=== PATIENT | male | born 1990 | race Caucasian/White ===

== ENCOUNTER 2016-09-09 02:44 | Emergency (ER) | payer SELFPAY ==
--- NOTE | ~2016-09-09 | CT2 ---
[facility] A Service of [facility] RADIOLOGY TEXT RESULTS PATIENT: JEFF MENDEZ LOCATION: SED : [birth year] UNIT #: [id number] AGE: [address]: David Rodriguez MD SEX: M ORDER DR: [id number] [place] [id number] E MR#: [id number] Acc #: [id number] NAME: JEFF MENDEZ : 1990 SEX: M STUDY DATE/TIME: 09/09/2016 4:31 UNIT: SED ROOM: STUDY DESCRIPTION: CT Abd and Pelv W Cont Attending Physician: David Rodriguez M.D. Ordering Physician: David Rodriguez M.D. MEDICAL IMAGING REPORT This report is preliminary unless electronic signature is present. EXAM CT abdomen and pelvis with contrast INDICATION Right lower quadrant abdominal pain for the past 2 days. PROCEDURE Contrast-enhanced CT abdomen and pelvis. This CT exam was performed with one or more of the following radiation dose reduction techniques: automatic exposure control, adjustment of mA and/or kV according to patient size, and iterative reconstruction. COMPARISON None. FINDINGS ABDOMEN WITH CONTRAST: Included lung bases clear. Liver, spleen, kidneys, adrenal glands, pancreas, gallbladder unremarkable. Bowel loops are nondilated. Moderate colonic stool burden. The appendix is not well seen on this study. No pericecal inflammation. PELVIS WITH CONTRAST: No pelvic mass or fluid. No aggressive-appearing bone lesion. IMPRESSION 1. No acute findings. 2. The appendix is not well seen on this study. There is no pericecal inflammation. 3. Moderate colonic stool burden. [facility] A Service of [facility] RADIOLOGY TEXT RESULTS PATIENT: JEFF MENDEZ LOCATION: SED : 91 UNIT #: [id number] AGE: [address]: David Rodriguez MD SEX: M ORDER DR: Dictated by... Rashel Guardado M.D. THIS IS AN ELECTRONICALLY VERIFIED REPORT Rashel Guardado M.D. at 09/09/2016 10:01 PM MASOOD/zainab TD: 09/09/2016 05:26 JOB #: [id number] MEDICAL IMAGING REPORT Page 1 of 1
[2016-09-09] MEDS ORDERED: NO MEDICATIONS (02:51)
[2016-09-09 03:45] LABS: BASOPHIL% 0.7 % (0-2.5); DIFF IND NO; EOSINOPHIL# 0.1 X10e3 (0-0.7); EOSINOPHIL% 2.1 % (0.0-7.0); HEMATOCRIT 39.6 % (38.0-50.0); HEMOGLOBIN 13.5 gm/dL (13.0-16.0); LYMPHOCYTE# 2.1 X10e3 (1.0-3.5); LYMPHOCYTE% 31.4 % (17.0-45.0); MEAN CELL VOLUME 89.2 FL (83-96); MEAN CORPUSCULAR HEMOGLOBIN 30.5 PG (28-34); MEAN CORPUSCULAR HGB CONC 34.2 g/dL (30-36); MEAN PLATELET VOLUME 8.6 FL (6.5-11.5); MONOCYTE# 0.5 X10e3 (0-1.0); MONOCYTE% 8.2 % (3.0-12.0); NEUTROPHIL# 3.8 X10e3 (1.5-7.1); NEUTROPHIL% 57.6 % (40-75); PLATELET COUNT 201 X10e3 (140-420); RED BLOOD COUNT 4.44 X10e (3.90-5.60); RED CELL DISTRIBUTION WIDTH 12.1 % (11.0-15.5); WHITE BLOOD COUNT 6.6 X10e3 (4.0-10.5)
[2016-09-09 03:59] LABS: BUN/CREATININE RATIO 17.5; CALCIUM SERUM 9.1 mg/dL (8.4-10.2); CREATININE SERUM 0.8 mg/dL (0.6-1.4); GLOM FILT RATE Estimated 124.2 mL/min (>60); POTASSIUM 3.5 mmol/L (3.5-5.1)
== END 2016-09-09 05:17 | disposition home or self-care (01) ==
LOC: SED 02:44
PROVIDERS: Emergency Medicine
DX: R10.31 Right lower quadrant pain (principal)
CPT/HCPCS: 36415; 74177; 80048; 85025; 99284; Q9967